=== PATIENT | female | born 1990 | race Caucasian/White ===

== ENCOUNTER 2020-11-02 16:11 | Outpatient (CLI) | payer OTHER, SELFPAY ==
[2020-11-02 16:42] LABS: Basophils Percent Auto 0.1 % (0.2-1.2); Eosinophils Percent Auto 0.4 % (0-4.4); Hematocrit 37.3 % (37.0-47.0); Hemoglobin 12.9 g/dL (12.0-15.0); Immature Granulocyte Absolute 0.03 K/mm3 (0.00-0.031); Immature Granulocyte Percent A 0.4 % (0-0.5); Lymphocytes Absolute Auto 1.38 K/mm3 (0.9-3.2); Lymphocytes Percent Auto 20.5 % (18.3-44.2); Mean Corpuscular HGB Conc 34.6 g/dl (32-36); Mean Corpuscular Hemoglobin 31.6 pg (26-34); Mean Corpuscular Volume 91.4 fl (80-100); Mean Platelet Volume 10.3 fl (7.4-10.4); Monocytes Absolute Auto 0.5 K/mm3 (0.1-0.6); Monocytes Percent Auto 7.9 % (2.6-8.5); Neutrophils Absolute Auto 4.7 K/mm3 (1.3-6.7); Neutrophils Percent Auto 70.7 % (45.5-73.1); Platelet Count Result 170 k/mm3 (150-375); Red Blood Count 4.08 M/mm3 (4.2-5.4); Red Cell Distribution Width 12.6 % (11.5-14.5); White Blood Count 6.7 K/mm3 (4.5-10.0)
[2020-11-02 16:51] LABS: Add Urine Microscopic? YES; Appearance Urine Cloudy (Clear); Bacteria Urine 2+ /hpf; Bilirubin Urine Negative (Negative); Blood Urine Negative (Negative); Color Urine Straw (Yellow); Glucose Urine UA Negative (Negative); Ketones Urine Trace mg/dL (Negative); Leukocyte Esterase Ur Negative LEU/UL (NEGATIVE); Mucus Urine Rare /lpf; Nitrate Urine Negative (Negative); Protein Urine Negative (Negative); RBC Urine 0-2 /hpf (0-2); Squamous Epithelial Cell Urine Rare /hpf (Few); Urobilinogen Urine Negative mg/dL (<2.0); WBC Urine 0-3 /hpf (0-3)
[2020-11-02 16:53] LABS: Alanine Aminotransferase 14 U/L (4-35); Albumin Level 3.6 g/dL (3.5-5.1); Alkaline Phosphatase 184 U/L (38-126); Anion Gap 7 mmol/L (8-16); Aspartate Amino Transferase 27 U/L (14-36); Bilirubin,Total 0.4 mg/dL (0.2-1.3); Blood Urea Nitrogen 8 mg/dL (7-17); Calcium 8.7 mg/dL (8.4-10.2); Carbon Dioxide 20 mmol/L (22-30); Chloride 109 mmol/L (98-107); Estimated Glomerular Filt Rate > 60; Glucose 89 mg/dL (65-105); Potassium 3.9 mmol/L (3.4-5.0); Sodium 136 mmol/L (137-145); Uric Acid 3.9 mg/dL (2.5-7.5)
[2020-11-02 16:54] VITALS: BP 132/86; PULSE 96
[2020-11-02 17:00] VITALS: BP 119/82; PULSE 104
--- NOTE | 2020-11-02 17:03 | PC.NURSE ---
Dr. Blanca on unit. Lab results, tracing and BPs reviewed. January D/C home.
[2020-11-02 19:16] LABS: Creatinine Urine 44.8 mg/dL; Total Protein Urine Random 11 mg/dL; Ur Ttl Prot Creatinine Ratio 0.25 mg/mg (0-0.20)
== END 2020-11-02 17:05 | disposition home or self-care (01) ==
LOC: ANHOBOP 16:18 → ANHLDR 16:19
PROVIDERS: Visit Provider Obstetrics & Gynecology
DX: O16.3 Unspecified maternal hypertension, third trimester (principal); Z3A.39 39 weeks gestation of pregnancy
CPT/HCPCS: 36415; 59025; 80053; 81001; 82570; 84156; 84550; 85025; 87086; 99199

== ENCOUNTER 2020-11-05 15:58 | Inpatient (IN) | payer OTHER, SELFPAY ==
[2020-11-05] VITALS (13 sets, daily range): BP systolic 124–140; BP diastolic 79–96; PULSE 69–105; TEMP 36.6–36.7
--- NOTE | 2020-11-05 15:58 | LDADM ---
This patient, Keysha Rogers, was admitted to Labor/Delivery/Recovery 107 on 11/05/20 at 15:58. Plans for labor, pain management and were discussed with patient. Patient/family oriented to hospital policies and general routines including ID bracelet, bed and alarms, visiting hours, pain management, procedures, bathroom and other care routines, personal items, smoking policy, room service/diet and guest tray routines, infant security routines, and visiting hours. Patient/Family are encouraged to report perceived risks to care and to ask questions if they do not understand what they are told or what they should do. See OBIX for further documentation.
[2020-11-05 16:50] LABS: Basophils Percent Auto 0.1 % (0.2-1.2); Eosinophils Absolute Auto 0.1 K/mm3 (0-0.3); Eosinophils Percent Auto 0.7 % (0-4.4); Hematocrit 36.4 % (37.0-47.0); Hemoglobin 12.9 g/dL (12.0-15.0); Immature Granulocyte Absolute 0.04 K/mm3 (0.00-0.031); Immature Granulocyte Percent A 0.6 % (0-0.5); Lymphocytes Absolute Auto 1.47 K/mm3 (0.9-3.2); Lymphocytes Percent Auto 21.2 % (18.3-44.2); Mean Corpuscular HGB Conc 35.4 g/dl (32-36); Mean Corpuscular Hemoglobin 32.1 pg (26-34); Mean Corpuscular Volume 90.5 fl (80-100); Mean Platelet Volume 10.6 fl (7.4-10.4); Monocytes Absolute Auto 0.6 K/mm3 (0.1-0.6); Monocytes Percent Auto 8.5 % (2.6-8.5); Neutrophils Absolute Auto 4.8 K/mm3 (1.3-6.7); Neutrophils Percent Auto 68.9 % (45.5-73.1); Platelet Count Result 170 k/mm3 (150-375); Red Blood Count 4.02 M/mm3 (4.2-5.4); Red Cell Distribution Width 12.4 % (11.5-14.5); White Blood Count 6.9 K/mm3 (4.5-10.0)
[2020-11-05] MEDS: DINOPROSTONE 10 MG VAG INSERT VAGINAL (16:51)
[2020-11-05 17:02] LABS: Alanine Aminotransferase 14 U/L (4-35); Albumin Level 3.6 g/dL (3.5-5.1); Alkaline Phosphatase 193 U/L (38-126); Anion Gap 8 mmol/L (8-16); Aspartate Amino Transferase 28 U/L (14-36); Bilirubin,Total 0.4 mg/dL (0.2-1.3); Blood Urea Nitrogen 10 mg/dL (7-17); Calcium 8.7 mg/dL (8.4-10.2); Carbon Dioxide 22 mmol/L (22-30); Chloride 107 mmol/L (98-107); Estimated Glomerular Filt Rate > 60; Glucose 87 mg/dL (65-105); Potassium 3.7 mmol/L (3.4-5.0); Sodium 137 mmol/L (137-145)
[2020-11-05 18:59] LABS: HIV 1/2 Ab P24 Ag Result Negative (Negative)
[2020-11-05 19:31] LABS: Uric Acid 4.3 mg/dL (2.5-7.5)
[2020-11-06] VITALS (165 sets, daily range): BP systolic 97–143; BP diastolic 49–101; PULSE 63–134; RESP 16–18; TEMP 36.3–36.9; O2SAT 81–100; BMI 31.4
[2020-11-06] MEDS: LACTATED RINGERS 1,000 ML 125 ML IV CONT ×2 (02:07→08:13)
--- NOTE | 2020-11-06 02:48 | WPDANESEPPF ---
Anes - Initial Pre Proc Eval Procedure: labor epidural Date/Time: 11/06/20 02:48 Surgeon: Mane Blanca MD Pre Op Diagnosis: labor pain Pre Op Diagnosis: Induction of Labor Patient Data Age: 30 Gender: F Height: 1.52 m Weight: 73 kg Last Vital Signs Temp 36.6 C 11/05/20 22:00 Pulse 106 H 11/06/20 02:46 BP 125/93 H 11/06/20 02:46 Pulse Ox 100 11/06/20 02:42 Allergies Allergy/AdvReac Type Severity Reaction Status Date / Time No Known Allergies Allergy Verified 10/15/20 12:09 Home Medications Medication Instructions Recorded Confirmed Type PNV cmb#95-ferrous fumarate-FA 1 tablet PO DAILY 10/15/20 11/05/20 History [] Laboratory Tests 11/05/20 11/05/20 11/05/20 16:42 16:42 16:42 WBC 6.9 K/mm3 K/mm3 (4.5-10.0) RBC 4.02 M/mm3 L M/mm3 (4.2-5.4) Hgb 12.9 g/dL g/dL (12.0-15.0) Hct 36.4 % L % (37.0-47.0) MCV 90.5 fl fl (80-100) MCH 32.1 pg pg (26-34) MCHC 35.4 g/dl g/dl (32-36) RDW 12.4 % % (11.5-14.5) Plt Count 170 k/mm3 k/mm3 (150-375) MPV 10.6 fl H fl (7.4-10.4) Immature Gran % (Auto) 0.6 % H % (0-0.5) Neut % (Auto) 68.9 % % (45.5-73.1) Lymph % (Auto) 21.2 % % (18.3-44.2) [place] % (Auto) 8.5 % % (2.6-8.5) Eos % (Auto) 0.7 % % (0-4.4) Baso % (Auto) 0.1 % L % (0.2-1.2) Lymph # (Auto) 1.47 K/mm3 K/mm3 (0.9-3.2) [place] # (Auto) 0.6 K/mm3 K/mm3 (0.1-0.6) Eos # (Auto) 0.1 K/mm3 K/mm3 (0-0.3) Baso # (Auto) 0.0 K/mm3 K/mm3 (0.0-0.1) Abs Immat Gran (auto) 0.04 K/mm3 H K/mm3 (0.00-0.031) Absolute Neuts (auto) 4.8 K/mm3 K/mm3 (1.3-6.7) Absolute Nucleated RBC 0.0 K/mm3 K/mm3 (0.0-0.012) Nucleated RBC % 0.0 % % (0.0-0.2) Sodium Potassium Chloride Carbon Dioxide Anion Gap BUN Creatinine Estim Creat Clear Calc Estimated GFR Glucose Uric Acid 4.3 mg/dL mg/dL (2.5-7.5) Calcium Total Bilirubin AST ALT Alkaline Phosphatase Total Protein Albumin RPR HIV 1&2 Ab/P24 Ag 4thGn Negative (Negative) Blood Type Antibody Screen 11/05/20 11/05/20 11/05/20 16:42 16:42 16:42 WBC RBC Hgb Hct MCV MCH MCHC RDW Plt Count MPV Immature Gran % (Auto) Neut % (Auto) Lymph % (Auto) [place] % (Auto) Eos % (Auto) Baso % (Auto) Lymph # (Auto) [place] # (Auto) Eos # (Auto) Baso # (Auto) Abs Immat Gran (auto) Absolute Neuts (auto) Absolute Nucleated RBC Nucleated RBC % Sodium 137 mmol/L mmol/L (137-145) Potassium 3.7 mmol/L mmol/L (3.4-5.0) Chloride 107 mmol/L mmol/L (98-107) Carbon Dioxide 22 mmol/L mmol/L (22-30) Anion Gap 8 mmol/L mmol/L (8-16) BUN 10 mg/dL mg/dL (7-17) Creatinine 0.60 mg/dL L mg/dL (0.7-1.0) Estim Creat Clear Calc Not Reportable Estimated GFR > 60 (59 - ) Glucose 87 mg/dL mg/dL (65-105) Uric Acid Calcium 8.7 mg/dL mg/dL (8.4-10.2) Total Bilirubin 0.4 mg/dL mg/dL (0.2-1.3) AST 28 U/L U/L (14-36) ALT 14 U/L U/L (4-35) Alkaline Phosphatase 193 U/L H U/L (38-126) Total Protein 7.0 g/dL g/dL (6.3-8.2) Albumin 3.6 g/dL g/dL (3.5-5.1) RPR Pending
[2020-11-06] MEDS: OXYTOCIN 30 UNITS/NS 500 ML 30 UNITS/500 ML BAG IV CONT (05:14)
[2020-11-06] MEDS: ONDANSETRON INJ 4 MG/2 ML VIAL IV PUSH (08:13)
--- NOTE | 2020-11-06 08:45 | WPDOBADMIT ---
Obstetrics - Admit Note Admission Note: record reviewed. Additions to the history and/or subsequent changes in the physical findings follow. 30 y/o G1 at 39 3/7 weeks with increasing bp readings in the office, here for scheduled induction of labor. No headaches, epigastric pain, visual field change. Good movement. Had Cervidil overnight, has been withdrawn. Now comfortable with epidural. AVSS NST reactive TOCO: contractions every 2-5 min ABD soft, nontender, gravid, vertex EXT nontender Cervix 4/50/-2. AROM with clear fluid. A: IUP at term with favorable cervix. P: Oxytocin. Anticipate .
[2020-11-06 08:50] LABS: Rapid Plasma Reagin Non-Reactive (NonReactive)
--- NOTE | 2020-11-06 12:11 | PM.OBPRVD ---
OB - Delivery Note Procedure Delivery date: 11/06/20 Procedure: Induction of labor with Induction method: per cervidil protocol Delivery augmentation: rupture of membranes and pitocin Delivery monitor: external FHT and external uterine Route of delivery: Laceration Description: Periurethral and Perineal - 2nd Degree Delivery repair: vicryl (3-0) Specimen: Yes (cord blood) Quantitative Blood Loss (ml): 115 Anesthesia type: Epidural Disposition: PACU Complications: None Narrative: 30 y/o G1 at 39 3/7 weeks gestation who presented to the hospital for induction of labor. Cervidil was placed overnight. It was withdrawn the next morning and oxytocin was administered intravenously. She received an epidural for pain control. Amniotomy was performed with return of clear fluid. Her labor progressed and her cervix dilated completely. She pushed with good effort and delivered the 's head to the perineum, followed by the body. The nose and mouth were bulb suctioned. After a delay, the cord was clamped and cut. The infant was handed off the field. Cord blood was collected. The placenta delivered spontaneously and was grossly normal in appearance. The usual 3 vessel cord was noted. A second degree midline perineal laceration was sustained. This was reapproximated using 3 0 Vicryl in the usual layered fashion. A single, figure of eight suture of the same material was used to reapproximate the edges of a right sided periurethral laceration. Excellent hemostasis resulted as did excellent reapproximation of the normal anatomy. Needle and instrument counts were correct. The patient was taken to recovery room in stable condition. The infant went to the nursery in stable condition. I was present and scrubbed for the entire delivery. Baby Date of : 11/06/20 Time of : 11:48 Weeks of gestation at delivery: 39 gender: Male Weight (pounds): 7 Weight (ounces): 7 presentation: vertex position: Right Occiput Anterior Placenta delivery description: Spontaneous and Normal Configuration cord vessel description: 3 Vessels and Delayed Cord Clamping score one minute: 9 score five minutes: 9
--- NOTE | 2020-11-06 12:14 | PM.OBDSVD ---
DS: Admitting Diagnosis Admitting Diagnosis Admitting Diagnosis: IUP at 39 3/7 weeks DS: Discharge Diagnosis Discharge Diagnosis (1) (normal spontaneous vaginal delivery): Code(s): O80 - Encounter for full-term uncomplicated delivery Status: Acute OB - DS: Summary OB Procedures : None OB Procedures Intrapartum: Spontaneous Vag Delivery OB Procedures: : None DS: Data Data Completed and Pending Labs on day of discharge: Labs from last 24 hours 11/05/20 11/05/20 11/05/20 16:42 16:42 16:42 WBC RBC Hgb Hct MCV MCH MCHC RDW Plt Count MPV Immature Gran % (Auto) Neut % (Auto) Lymph % (Auto) [place] % (Auto) Eos % (Auto) Baso % (Auto) Lymph # (Auto) [place] # (Auto) Eos # (Auto) Baso # (Auto) Abs Immat Gran (auto) Absolute Neuts (auto) Absolute Nucleated RBC Nucleated RBC % Sodium 137 Potassium 3.7 Chloride 107 Carbon Dioxide 22 Anion Gap 8 BUN 10 Creatinine 0.60 L Estim Creat Clear Calc Not Reportable Estimated GFR > 60 Glucose 87 Uric Acid Calcium 8.7 Total Bilirubin 0.4 AST 28 ALT 14 Alkaline Phosphatase 193 H Total Protein 7.0 Albumin 3.6 RPR Non-reactive HIV 1&2 Ab/P24 Ag 4thGn Blood Type O Positive Antibody Screen Negative 11/05/20 11/05/20 11/05/20 16:42 16:42 16:42 WBC 6.9 RBC 4.02 L Hgb 12.9 Hct 36.4 L MCV 90.5 MCH 32.1 MCHC 35.4 RDW 12.4 Plt Count 170 MPV 10.6 H Immature Gran % (Auto) 0.6 H Neut % (Auto) 68.9 Lymph % (Auto) 21.2 [place] % (Auto) 8.5 Eos % (Auto) 0.7 Baso % (Auto) 0.1 L Lymph # (Auto) 1.47 [place] # (Auto) 0.6 Eos # (Auto) 0.1 Baso # (Auto) 0.0 Abs Immat Gran (auto) 0.04 H Absolute Neuts (auto) 4.8 Absolute Nucleated RBC 0.0 Nucleated RBC % 0.0 Sodium Potassium Chloride Carbon Dioxide Anion Gap BUN Creatinine Estim Creat Clear Calc Estimated GFR Glucose Uric Acid 4.3 Calcium Total Bilirubin AST ALT Alkaline Phosphatase Total Protein Albumin RPR HIV 1&2 Ab/P24 Ag 4thGn Negative Blood Type Antibody Screen Discharge Plan Discharge Attending physician on discharge: Mane Blanca Discharging Clinician: Mane Blanca Patient Disposition: Home, Self-Care Activity: pelvic rest Diet: regular Discharge Instructions: Call or return if temperature above 100.4? F, increased abdominal pain, increased vaginal bleeding or any new problems. 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
[2020-11-06] MEDS: OXYTOCIN 30 UNITS/NS 500 ML 30 UNITS/500 ML BAG 125 UNITS IV CONT (12:20)
[2020-11-06] MEDS: IBUPROFEN 600 MG TABLET PO ×2 (13:50→20:38)
[2020-11-06] MEDS: BENZOCAINE 20% AER SPR (*SP) 56 GM CAN 1 SPRAY TOPICAL (13:51)
[2020-11-06] MEDS: WITCH HAZEL 40 PADS 1 PAD TOPICAL (13:51)
--- NOTE | 2020-11-06 14:17 | PC.NURSE ---
Patient transferred to post room #279 via wheelchair. Support person present. Oriented to unit, room, information board, rooming in, admission packet and security measures. Patient verbalizes understanding.
[2020-11-07 05:48] LABS: Hematocrit 33.9 % (37.0-47.0); Hemoglobin 11.6 g/dL (12.0-15.0)
[2020-11-07 07:40] VITALS: BP 95/58; PULSE 88; RESP 18; TEMP 36.6; O2SAT 95
[2020-11-07] MEDS: ACETAMINOPHEN 325 MG TABLET 650 MG PO (07:55)
[2020-11-07] MEDS: IBUPROFEN 600 MG TABLET PO ×2 (07:59→17:21)
--- NOTE | 2020-11-07 08:27 | PM.OBPNVD ---
OB - PN: Subj Subjective Date/time seen: 11/07/20 08:27 Narrative: Pain OK. Would like circumcision for son. OB - PN: Obj Data Labs CBC & Chem 7: 11/07/20 03:53 11/05/20 16:42 Labs: Laboratory Results - last 24 hr 11/05/20 11/07/20 16:42 03:53 Hgb 11.6 L Hct 33.9 L RPR Non-reactive OB - PN A/P Plan Comments: A: PPD#1, doing well. P: Routine care. Reviewed circumcision. Exam Psych: Other: AVSS ABD soft, nontender, fundus firm EXT nontender
[2020-11-07 08:30] VITALS: PULSE 88; RESP 18; O2SAT 95
--- NOTE | 2020-11-07 08:38 | WPDANLDPN2 ---
Anes-Prog Note L&D Date/Time: 11/07/20 08:38 Comfortable throughout: labor Neuraxial method: epidural Epidural/Spinal procedure site: clean & non-tender Neuro status: Neuro function grossly intact. Cardiovascular status: normal Respiratory status: normal Airway patency: baseline Mental status: baseline Post-Op hydration status: normal Vital Signs: Last Vital Signs Temp 36.3 C L 11/06/20 20:30 Pulse 75 11/06/20 20:30 Resp 18 11/06/20 20:30 BP 119/77 11/06/20 20:30 Pulse Ox 100 11/06/20 20:30 Pain score (VAS): no complaints Post-procedural complaints: none Patient feedback: Patient satisfied with anesthetic care.
[2020-11-07] MEDS: DOCUSATE SODIUM 100 MG CAPSULE PO (11:13)
[2020-11-07] MEDS: MULTIVIT/MIN/PREN/FOL AC/IRON TABLET 1 TAB PO (11:13)
[2020-11-07 20:05] VITALS: BP 124/86; PULSE 89; RESP 16; TEMP 36.6; O2SAT 100
--- NOTE | 2020-11-07 20:05 | PC.NURSE ---
Patient viewed the discharge video Mother & Baby Care, The First Two Weeks online. Patient was given the opportunity and encouraged to ask questions. Patient verbalized understanding of information shared and has been given the mother/baby guide for home reference.
[2020-11-08] MEDS: DOCUSATE SODIUM 100 MG CAPSULE PO (07:11)
[2020-11-08] MEDS: MULTIVIT/MIN/PREN/FOL AC/IRON TABLET 1 TAB PO (07:12)
[2020-11-08] MEDS: IBUPROFEN 600 MG TABLET PO (07:12)
[2020-11-08 07:45] VITALS: BP 123/87; PULSE 62; RESP 16; TEMP 36.7; O2SAT 98
--- NOTE | 2020-11-08 09:18 | PM.OBPNVD ---
OB - PN: Subj Subjective Date/time seen: 11/08/20 09:18 Narrative: Pain OK. Would like to go home. OB - PN: Obj Data Labs CBC & Chem 7: 11/07/20 03:53 11/05/20 16:42 OB - PN A/P Plan Comments: A: PPD#2, doing well. P: Home to f/u 6 weeks. Exam Psych: Other: AVSS ABD soft, nontender, fundus firm EXT nontender
--- NOTE | 2020-11-08 09:59 | PC.NURSE ---
Patient viewed the discharge video Mother & Baby Care, The First Two Weeks . Patient was given the opportunity and encouraged to ask questions. Patient verbalized understanding of information shared and has been given the mother/baby guide for home reference.
[2020-11-10 11:01] VITALS: BP 148/102; PULSE 80; RESP 20; TEMP 36.6; O2SAT 99
== END 2020-11-08 12:35 | disposition home or self-care (01) | DRG 807 ==
LOC: ANHLDR 11-06 12:15 → ANHOB2 11-06 14:23
PROVIDERS: Admitting Provider Obstetrics & Gynecology; Visit Provider Obstetrics & Gynecology
DX: O13.4 Gestational [pregnancy-induced] hypertension without significant proteinuria, complicating childbirth (principal); Z37.0 Single live birth; Z3A.39 39 weeks gestation of pregnancy; O99.214 Obesity complicating childbirth; E66.9 Obesity, unspecified; O70.1 Second degree perineal laceration during delivery
CPT/HCPCS: 36415; 59025; 80053; 81001; 82570; 84156; 84550; 85014; 85018; 85025; 86592; 86703; 86850; 86900; 86901; 87086; 99199; A9270; G0432; J2405; J2590; J2795; J7120